=== PATIENT | male | born 1965 | race Caucasian/White ===

== ENCOUNTER 2024-10-26 10:03 | Day surgery (SDC) | payer BC ==
[2024-10-23 11:43] VITALS: BMI 24.4
[2024-10-26] MEDS ORDERED: Sevoflurane 250 ML INH ANEST BOTTLE ONE (11:59)
[2024-10-26] MEDS ORDERED: fentaNYL PF 100 MCG/2 ML SYRINGE ONE (12:19)
[2024-10-26] MEDS ORDERED: Midazolam HCl 2 mg/2 ml Vial ONE (12:20)
[2024-10-26] MEDS ORDERED: Ondansetron PF 4 MG/2 ML Vial ONE (12:40)
[2024-10-26] MEDS ORDERED: PROPOFOL 200 MG/20 ML VIAL ONE (12:40)
[2024-10-26] MEDS ORDERED: Dexamethasone 20 MG/5 ML VIAL ONE (12:40)
[2024-10-26] MEDS ORDERED: Lidocaine 1% PF 5 ML VIAL ONE (12:40)
== END 2024-10-26 14:20 | disposition home or self-care (01) ==
LOC: MRI 10:03
PROVIDERS: ATTEND Neurological Surgery
DX: M48.062 Spinal stenosis, lumbar region with neurogenic claudication (principal); I10 Essential (primary) hypertension; F32.A Depression, unspecified; Z79.899 Other long term (current) drug therapy
CPT/HCPCS: 72148; 93005; 93010; J1100; J2250; J2405; J2704